=== PATIENT | male | born 1940 | race Caucasian/White ===

== ENCOUNTER → 2019-04-26 | Day surgery (SDC) | payer OTHER ==
[~2019-04-26] MED LIST: JANUMET XR 50-1 EAC1 PO; LIPITOR20 MG PO; PLAVIX75 MG PO; [UNRECOGNIZED DRUG - OTHER] PO
== END | disposition home or self-care (01) ==
LOC: ADM 04-19 07:45 → CIR.AMB 05:40
DX: N45.4 Abscess of epididymis or testis (principal)